=== PATIENT | female | born 1990 | race American Indian/Alaskan Native ===

== ENCOUNTER 2018-05-17 12:26 | Emergency (ER) | payer OTHER ==
[2018-05-17] MEDS ORDERED: NACL 0.9% IR ONE (16:45)
[2018-05-17] MEDS ORDERED: XYLOCAINE 1% MPF 5 mL INFILTRATI ONE (16:45)
[2018-05-17] MEDS ORDERED: BOOSTRIX IM ONE (16:45)
[2018-05-17] MEDS ORDERED: TYLENOL #3 PO ONE (16:45)
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
[2018-05-17 17:35] LABS: HCG Qualitative,Urine Negative (Negative)
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
[2018-05-17 21:36] VITALS: BP 128/60
== END 2018-05-17 20:44 | disposition home or self-care (01) ==
LOC: ED 12:26
DX: S09.90XA Unspecified injury of head, initial encounter (principal); S81.012A Laceration without foreign body, left knee, initial encounter; M54.5 Low back pain; V89.2XXA Person injured in unspecified motor-vehicle accident, traffic, initial encounter; Y93.89 Activity, other specified; Y99.8 Other external cause status; Y92.410 Unspecified street and highway as the place of occurrence of the external cause
CPT/HCPCS: 70450; 72100; 81025; 90471; 90715

== ENCOUNTER 2018-06-11 20:50 | Emergency (ER) | payer SELFPAY | END 2018-06-11 21:00 | disposition left against medical advice (07) | LOC: ED 20:50 | DX: F41.9 Anxiety disorder, unspecified (principal); Z53.21 Procedure and treatment not carried out due to patient leaving prior to being seen by health care provider ==